=== PATIENT | male | born 1950 | race American Indian/Alaskan Native ===

== ENCOUNTER 2020-09-10 14:09 | Emergency (ER) | payer MEDICARE ==
[2020-09-10 16:30] LABS: Basophils % (Auto) 0.3 % (0.0-1.8); Eosinophils # (Auto) 0.1 K/mm3 (0.0-0.4); Eosinophils % (Auto) 1.3 % (0.0-4.3); Hematocrit 42.7 % (35.5-45.6); Hemoglobin 14.5 gm/dl (11.8-15.2); Lymphocytes # (Auto) 1.4 K/mm3 (1.2-5.4); Lymphocytes % (Auto) 18.4 % (13.4-35.0); Mean Corpuscular HGB Conc 34 % (32-34); Mean Corpuscular Volume 95 fl (84-94); Monocytes # (Auto) 0.5 K/mm3 (0.0-0.8); Monocytes % (Auto) 7.2 % (0.0-7.3); Platelet Count 227 K/mm3 (140-440); Red Cell Distribution Width 13.3 % (13.2-15.2)
[2020-09-10 16:54] LABS: Alanine Aminotransferase 17 units/L (7-56); Albumin 4.5 g/dL (3.9-5); BUN/Creatinine Ratio 20; Blood Urea Nitrogen 18 mg/dL (9-20); Calcium 9.4 mg/dL (8.4-10.2); Hemolysis Index 11
--- NOTE | 2020-09-10 17:26 | XRay Report ---
CHEST 1 VIEW INDICATION / CLINICAL INFORMATION: cough. FINDINGS: SUPPORT DEVICES: None. HEART / MEDIASTINUM: No significant abnormality. LUNGS / PLEURA: No significant pulmonary or pleural abnormality. No pneumothorax. ADDITIONAL FINDINGS: No significant additional findings. IMPRESSION: 1. No acute findings. Signer Name: Dangelo Green MD Signed: 09/10/2020 5:21 PM Workstation Name: [id number]
--- NOTE | 2020-09-10 18:09 | Emergency Department Report ---
ED Psych HPI - General Chief Complaint: Psych Stated Complaint: MENTAL HEALTH Time Seen by Provider: 09/10/20 16:52 Source: patient Mode of arrival: Ambulatory - History of Present Illness Initial Comments: 69-year-old male, history of bipolar disorder and schizophrenia, presents to ED for mental health evaluation. I spoke with the patient's sister, Geetha Del Toro, who has power of solution make up operator, and her daughter, patient's niece. Patient lives with his sister. Family states that patient has been having " episodes" for the last month. They states when he has these episodes, patient hallucinates, stating "My head is gone... My eyes are gone... Where's my head?" Family states patient had bilateral moving car on the way here because he did not want to be evaluated. Patient will say things such as he has gas all over him and he is burning. Patient often takes his pills but does not swallow them, and then they find the pills later, undigested. Family states patient has a psychiatrist and advised him to come to the ER to be placed on a 1013 for inpatient admission. MD Complaint: other -: month(s) (1) History of same: Yes Quality: getting worse Improves With: none Worsens With: none Context: not taking psychiatric Associated Symptoms: denies other symptoms Treatments Prior to Arrival: none - Related Data Home Medications Medication Instructions Recorded Confirmed Last Taken Cyanocobalamin (Vitamin B-12) 1,000 mcg PO DAILY 10/17/15 10/17/15 Unknown [B-12] Quetiapine Fumarate [SEROquel] 50 mg PO BID 10/17/15 10/17/15 Unknown diphenhydrAMINE [Benadryl CAP] 25 mg PO QHS PRN 10/17/15 10/17/15 Unknown Previous Rx's Medication Instructions Recorded Last Taken Type Benztropine [Cogentin] 0.5 mg PO BID #10 tab 09/11/20 Unknown Rx Mirtazapine [Remeron 15mg TAB] 15 mg PO QHS #30 tablet 09/11/20 Unknown Rx risperiDONE [Risperal] 1 mg PO BID #100 ml 09/11/20 Unknown Rx Allergies Allergy/AdvReac Type Severity Reaction Status Date / Time No Known Allergies Allergy Verified 09/11/20 08:30 ED Review of Systems ROS: Stated complaint: MENTAL HEALTH Other details as noted in HPI Comment: All other systems reviewed and negative Psychiatric: auditory hallucinations, visual hallucinations ED Past Medical Hx - Past Medical History Hx Psychiatric Treatment: Yes Additional medical history: Schizophrenia and bipolar - Surgical History Past Surgical History?: No - Social History Smoking Status: Never Smoker Substance Use Type: None - Medications Home Medications: Home Medications Medication Instructions Recorded Confirmed Last Taken Type Cyanocobalamin (Vitamin B-12) 1,000 mcg PO DAILY 10/17/15 10/17/15 Unknown History [B-12] Quetiapine Fumarate [SEROquel] 50 mg PO BID 10/17/15 10/17/15 Unknown History diphenhydrAMINE [Benadryl CAP] 25 mg PO QHS PRN 10/17/15 10/17/15 Unknown History Benztropine [Cogentin] 0.5 mg PO BID #10 tab 09/11/20 Unknown Rx Mirtazapine [Remeron 15mg TAB] 15 mg PO QHS #30 tablet 09/11/20 Unknown Rx risperiDONE [Risperal] 1 mg PO BID #100 ml 09/11/20 Unknown Rx ED Physical Exam - General Limitations: No Limitations General appearance: alert, in no apparent distress - Head Head exam: Present: atraumatic, normocephalic - Eye Eye exam: Present: normal appearance, EOMI - ENT ENT exam: Present: mucous membranes moist - Neck Neck exam: Present: normal inspection - Respiratory Respiratory exam: Present: normal lung sounds bilaterally. Absent: respiratory distress - Cardiovascular Cardiovascular Exam: Present: normal rhythm, tachycardia - GI/Abdominal GI/Abdominal exam: Absent: distended - Extremities Exam Extremities exam: Present: normal inspection - Neurological Exam Neurological exam: Present: alert - Psychiatric Psychiatric exam: Present: normal affect, normal mood - Skin Skin exam: Present: warm, dry, intact, normal color ED Course Vital Signs 09/10/20 09/10/20 09/11/20 15:14 20:05 05:30 Temperature 98.4 F 98.5 F 98.8 F Pulse Rate 107 H 73 77 Respiratory 20 18 18 Rate Blood Pressure 151/93 Blood Pressure 133/82 110/72 [Left] O2 Sat by Pulse 99 100 95 Oximetry 09/11/20 08:32 Temperature 96.9 F L Pulse Rate 76 Respiratory 18 Rate Blood Pressure Blood Pressure 139/90 [Left] O2 Sat by Pulse 100 Oximetry ED Medical Decision Making - Lab Data Result diagrams: 09/10/20 16:19 09/10/20 16:19 - Medical Decision Making 69-year-old old male presents to ED for mental health evaluation. Family reports that patient has been having bizarre behavior, hallucinations, not taking his medications. Patient has been placed on a 1013. We are Awaiting UA and urine drug screen, however, patient is medically clear for mental health evaluation. Critical care attestation.: If time is entered above; I have spent that time in minutes in the direct care of this critically ill patient, excluding procedure time. ED Disposition Clinical Impression: Schizophrenia Disposition: DC-01 TO HOME OR SELFCARE Is pt being admited?: No Condition: Stable Instructions: Schizophrenia, Supporting Someone With Schizophrenia, Managing Schizophrenia Prescriptions: Mirtazapine [Remeron 15mg TAB] 15 mg PO QHS #30 tablet Benztropine [Cogentin] 0.5 mg PO BID #10 tab risperiDONE [Risperal] 1 mg PO BID #100 ml Referrals: [facility] [Other] - 3-5 Days PRIMARY CARE, [Primary Care Provider] - 3-5 Days
[2020-09-10 19:32] LABS: Amphetamine Screen,Urine Negative; Benzodiazepines Screen,Urine Negative; Cannabinoid Screen,Urine Negative; Cocaine Screen,Urine Negative; Methadone Screen,Urine Negative; Opiate Screen,Urine Negative
--- NOTE | 2020-09-11 08:12 | Consultation ---
History of Present Illness - Reason for Consult Consult date: 09/11/20 Reason for consult: MHE Requesting physician: RAJ ARORA - History of Present Psychiatric Illness Per ED Provider:69-year-old male, history of bipolar disorder and schizophrenia, presents to ED for mental health evaluation. I spoke with the patient's sister, Geetha Del Toro, who has power of claims attorney, and her daughter, patient's niece. Patient lives with his sister. Family states that patient has been having " episodes" for the last month. They states when he has these episodes, patient hallucinates, stating "My head is gone... My eyes are gone... Where's my head?" Family states patient had bilateral moving car on the way here because he did not want to be evaluated. Patient will say things such as he has gas all over him and he is burning. Patient often takes his pills but does not swallow them, and then they find the pills later, undigested. Family states patient has a psychiatrist and advised him to come to the ER to be placed on a 1013 for inpatient admission. Per MHE: Per family pt carries a diagnosis of Schizophrenia; family reports pt has no hx of Dementia. Family reported to ED provider that the pt is not compliant with his meds and will cheek his meds then spit them out. Family reported to this criminal justice social worker that the pt is compliant with his medications. Family reports that the pt is followed by [facility] at [address] [place] [address] with next appointment in one week Sunday. Family reports that the pts outpatient psychiatrist advised pt come to the ED for a reaction to the increase in his Seroquel. Family reports that the pt has no hx of inpatient tx. From previous notes 2015, team attempted to find inpatient placement but denied by multiple facilities due to DD, unable to complete ADLs on his own or fully participate in groups. Pt resides with his sister Geetha Del Toro who can be reached at [phone]. Ms. Iniguez reports that she is the patients guardian and the pt has lived with her "his whole life... since he was born." Ms. Del Toro reports that the pt is usually, "regular... he eats three times a day and a snack, he colors and likes to spell." When criminal justice social worker asked pt sister Ms. Iniguez if the pt has an developmental delays, sister stated no. Asked to speak with pt's niece. Pt niece stated that the pt, "never went to school," and has lived with his sister (who also does not drive) their entire life. The niece transports the pt and his sister where they need to go and checks in on them. Comparator Operator looked back in the pts chart and pt has hx of developmental delays, needing assistance performing his ADLS. Asked the niece if the pt has any Developmental delays or intellectual disabilities the niece states that the pt does. Pt is on disability and does not work. Pt has no legal hx per the family.Family reports the pt has no substance use history. Pt has not reported any thoughts or plans to harm himself to his family or made any suicidal threats or statements. When I asked the pt this question, pt moves his mouth back and forth but only grunts.Family reports that the pt has not made any homicidal threats or gestures. Hx of agitation, aggression per 2016 records. Pt is not oriented. Pt unable to tell me his name or date of or where he is. Pt only grunts throughout the assessment. Family reports that the pt is usually able to communicate, "regular. He asks what's for dinner and can go with us to the grocery store." Unable to fully assess the pt's baseline. Family reports that the pt behaviors changed one week ago after an increase in his S eroquel. The "grunting and moaning noises," started at this time as well. Family also reports that one week ago the pt began having delusions; pt has been stating that he doesn't have a head, his ears have fallen off. Per previous records however, pt has had similar somatic delusions in the past (records from 2016 during a visit to this hospital reporting that his penis is gone and his rectum is missing). Pt has poor eye contact, poor attention, poor focus, poor judgement, poor insight. PSYCH HPI Patient is a 69-year-old unemployed disabled male who currently resides with family. Past psychiatric history of schizophrenia, dementia and underlying developmental delay and unspecified medical related issues who presented to the ED with family at patient psychiatrics advised for concern of medication reaction after recent increase in Seroquel with increase grunting and moaning noises. Patient seen in ED, having difficulty expressing words but understandable when he does speaks out lout. Patient adriana to say the name of president of [facility], thinks he is at [facility] (note shows he gets care from [facility]) which is understandable but does not know the year or month. Patient denies hearing voices, reports sleeping and says he just want to rest. He also does not know why he is here. PAST PSYCHIATRIC HISTORY Diagnoses:schizophrenia Suicide attempts or Self-harm behavior: Prior psychiatric hospitalizations: Substance Abuse history: Previous psychiatric medications tried: Outpatient treatment: PAST MEDICAL HISTORY: Family Psychiatric History: None reported or documented SOCIAL HISTORY Marital Status: single Living Arrangements: with family Employment Status:dsiabled Access to guns/weapons: none Education: 11th grade History of Abuse: none Legal History: none reproted REVIEW OF SYSTEMS ROS cannot be reliably obtained from the patient due to his current mental status MENTAL STATUS EXAMINATION General Appearance and Behavior: Age appropriate, good hygiene, wearing appropriate clothes, cooperative polite with questioning. Cooperation: engaged Psychomotor Behavior: Psychomotor normal Mood: good Affect and affective range: congruent with mood Thought Process: confused Thought Content: confused Speech: mumbled voices, normal volume Intellectual Functioning: Poor Suicidal Ideation: N/A Homicidal Ideation: N/A Impulse Control: Unimpaired Insight and Judgment: Impaired Memory: memory impaired Attention:Distractible, Orientation: Alert, but disoriented and confused MENTAL STATUS EXAMINATION General Appearance and Behavior: Age appropriate, good hygiene, wearing appropriate clothes, uncooperative irritable with questioning. Cooperation: Withdrawn Psychomotor Behavior: Psychomotor agitation Mood: "mumbling" Affect and affective range: Euthymic Thought Process: Tangential, loose associattion Thought Content: Paranoid and confused Speech: low volumbe, mumbling voice, Intellectual Functioning: Poor Suicidal Ideation: N/A Homicidal Ideation: N/A Impulse Control: Unimpaired Insight and Judgment: Impaired Memory: memory impaired Attention:Distractible, Orientation: Alert, but disoriented and confused Diagnoses: Assessment and Plan - Psychiatric problem (1) Concern about drug reaction without diagnosis Current Visit: Yes Status: Acute Treatment Plan Patient with hx of dementia, not displaying endangering behaviors, per my review of MHE asessors note, pt has always required assistance and with some underlying cognitive impairement. His confusion or hallucination are not primary concerns given combined history of Dementia and suggested developmental delay, no acute treatment for that. No major threatening or endangering behavior rpeorted. Family reports that the pt behaviors changed one week ago after an increase in his Seroquel. The "grunting and moaning noises," This may be due to dystonia. Will treat with IM cogentin in ED. Hold Seroquel and discharge pt on Risperdione, oral cogentine and remeron for sleep QHS. To follow up outpt with family psychiatrist. MEDICATIONS: Risks, benefits and alternatives of medications discussed with the patient, questions answered and consent obtained from patient. PSYCHOTHERAPY: Supportive psychotherapy provided MEDICAL: Per primary team DELIRIUM PRECAUTIONS: Please re-orient patient frequently, keep lights on during the day, and minimize benzodiazepines and opiates as these medications could worsen patient's confusion. AUTOMATIC SPINNING LATHE SETTER: DISPOSITION: Do Not Recommend acute inpatient psychiatric hospitalization at this time. Case discussed with Dr. Allison who agrees with current disposition LEGAL STATUS: 1013 rescinded FOLLOW-UP: Will sign off Thank you for the consult. Please contact with any questions and/or concerns. Medications and Allergies Allergies Allergy/AdvReac Type Severity Reaction Status Date / Time No Known Allergies Allergy Verified 09/11/20 08:30 Home Medications Medication Instructions Recorded Confirmed Last Taken Type Cyanocobalamin (Vitamin B-12) 1,000 mcg PO DAILY 10/17/15 10/17/15 Unknown History [B-12] Quetiapine Fumarate [SEROquel] 50 mg PO BID 10/17/15 10/17/15 Unknown History diphenhydrAMINE [Benadryl CAP] 25 mg PO QHS PRN 10/17/15 10/17/15 Unknown History Benztropine [Cogentin] 0.5 mg PO BID #10 tab 09/11/20 Unknown Rx risperiDONE [Risperal] 1 mg PO BID #100 ml 09/11/20 Unknown Rx Mental Status Exam - Vital signs Last Vital Signs Temp 98.8 F 09/11/20 05:30 Pulse 77 09/11/20 05:30 Resp 18 09/11/20 05:30 BP 110/72 09/11/20 05:30 Pulse Ox 95 09/11/20 05:30 Results Result Diagrams: 09/10/20 16:19 09/10/20 16:19 Abnormal lab results 09/10/20 09/10/20 09/10/20 Range/Units 16:19 16:19 16:19 MCV 95 H (84-94) fl Seg Neutrophils % 72.8 H (40.0-70.0) % Glucose 117 H (75-100) mg/dL Salicylates < 0.3 L (2.8-20.0) mg/dL Acetaminophen (10.0-30.0) ug/mL 09/10/20 Range/Units 16:19 MCV (84-94) fl Seg Neutrophils % (40.0-70.0) % Glucose (75-100) mg/dL Salicylates (2.8-20.0) mg/dL Acetaminophen 5.0 L (10.0-30.0) ug/mL All other labs normal. Assessment and Plan - Psychiatric problem (1) Concern about drug reaction without diagnosis Current Visit: Yes Status: Acute
[2020-09-11 08:32] VITALS: BP 139/90
[2020-09-11] MEDS ORDERED: BENZTROPINE 2 MG/2 ML INJ IM NR (09:35)
--- NOTE | 2020-09-11 10:41 | Event Note ---
Date: 09/11/20 69-year-old male with history of dementia who presented due to behavioral change. Seen by psychiatry and 1013 rescinded. Psych recommends holding Seroquel and discharging the patient on risperidone, Cogentin, and Remeron for sleep. Vitals were reviewed and are stable. Patient will follow up with outpatient psychiatrist.
[2020-09-11] MEDS ORDERED: BENZTROPINE 2 MG/2 ML INJ IM ONE (10:52)
== END 2020-09-11 18:28 | disposition home or self-care (01) ==
LOC: ED 14:09
DX: F20.9 Schizophrenia, unspecified (principal); Z79.899 Other long term (current) drug therapy
CPT/HCPCS: 36415; 71045; 80053; 80307; 85025; 96372; 99285; J0515; 80320; G0480

== ENCOUNTER 2020-10-19 17:40 | Emergency (ER) | payer MEDICARE ==
[2020-10-19 18:16] LABS: Bilirubin,Urine NEG (Negative); Blood,Urine NEG (Negative); Color,Urine Straw (Yellow); Protein,Urine <15 mg/dL mg/dL (Negative); Urobilinogen,Urine < 2.0 mg/dL (<2.0)
[2020-10-19 18:20] LABS: WBC,Urine < 1.0 /HPF (0.0-6.0)
[2020-10-19 18:28] VITALS: BP 142/80
[2020-10-19 18:29] LABS: Amphetamine Screen,Urine Negative; Benzodiazepines Screen,Urine Negative; Cannabinoid Screen,Urine Negative; Cocaine Screen,Urine Negative; Methadone Screen,Urine Negative; Opiate Screen,Urine Negative
--- NOTE | 2020-10-19 18:45 | Emergency Department Report ---
ED General Adult HPI - General Chief complaint: Psych Stated complaint: patient articulates no complaints PUI?: No Time Seen by Provider: 10/19/20 18:31 Source: patient, RN notes reviewed, old records reviewed Mode of arrival: Ambulatory Limitations: Other (Patient not communicative.) - History of Present Illness Initial comments: The patient is a 69-year-old gentleman. He has a history of bipolar disorder and schizophrenia. He presented to the ER for a mental health evaluation. As per nursing documentation, and collateral history obtained from nurse who triaged this patient, the patient was reportedly trying to get out of a car. As per prior documentation, the patient resides with his sister, Ms. Geetha Del Toro; [phone]. Called this number, to obtain collateral history and information. Nobody answer the phone. Left voicemail for call back. It appears that this patient has a history of noncompliance with his m edications, and that has not been able to complete activities of daily living on his own, or fully participating groups. His past history also includes schizophrenia, dementia, and underlying develop mental delay The patient himself is awake. He indicates that he is not having physical pain. He states that he is hungry. He states he does not want to harm himself or harm other people. He denies additional complaints, however, he is minimally verbal and a poor historian. No additional history is available at this time. -: unknown Severity scale (0 -10): 0 - Related Data Home Medications Medication Instructions Recorded Confirmed Last Taken Cyanocobalamin (Vitamin B-12) 1,000 mcg PO DAILY 10/17/15 10/17/15 Unknown [B-12] Quetiapine Fumarate [SEROquel] 50 mg PO BID 10/17/15 10/17/15 Unknown diphenhydrAMINE [Benadryl CAP] 25 mg PO QHS PRN 10/17/15 10/17/15 Unknown Previous Rx's Medication Instructions Recorded Last Taken Type Benztropine [Cogentin] 0.5 mg PO BID #10 tab 10/19/20 Unknown Rx Mirtazapine [Remeron 15mg TAB] 15 mg PO QHS #30 tablet 10/19/20 Unknown Rx risperiDONE [RisperDAL ORAL LIQD] 1 mg PO BID #100 ml 10/19/20 Unknown Rx Allergies Allergy/AdvReac Type Severity Reaction Status Date / Time No Known Allergies Allergy Verified 09/11/20 08:30 ED Review of Systems ROS: Stated complaint: SCHIZOPHENIA Other details as noted in HPI Comment: Unobtainable due to pts medical conditions ED Past Medical Hx - Past Medical History Previous Medical History?: Yes Hx Psychiatric Treatment: Yes Additional medical history: Schizophrenia and bipolar. hyperkalemia - Social History Smoking Status: Never Smoker Substance Use Type: None - Medications Home Medications: Home Medications Medication Instructions Recorded Confirmed Last Taken Type Cyanocobalamin (Vitamin B-12) 1,000 mcg PO DAILY 10/17/15 10/17/15 Unknown History [B-12] Quetiapine Fumarate [SEROquel] 50 mg PO BID 10/17/15 10/17/15 Unknown History diphenhydrAMINE [Benadryl CAP] 25 mg PO QHS PRN 10/17/15 10/17/15 Unknown History Benztropine [Cogentin] 0.5 mg PO BID #10 tab 10/19/20 Unknown Rx Mirtazapine [Remeron 15mg TAB] 15 mg PO QHS #30 tablet 10/19/20 Unknown Rx risperiDONE [RisperDAL ORAL LIQD] 1 mg PO BID #100 ml 10/19/20 Unknown Rx ED Physical Exam - General Limitations: Other (Developmental delay, poor historian, lack of family available for collateral information) General appearance: alert, in no apparent distress - Head Head exam: Present: atraumatic, normocephalic - Eye Eye exam: Present: normal appearance, EOMI. Absent: nystagmus - ENT ENT exam: Present: normal exam, mucous membranes moist, normal external ear exam, other (The patient is edentulous) - Neck Neck exam: Present: normal inspection, full ROM. Absent: tenderness, meningismus - Respiratory Respiratory exam: Present: normal lung sounds bilaterally. Absent: respiratory distress, wheezes, rales, rhonchi, stridor, decreased breath sounds - Cardiovascular Cardiovascular Exam: Present: regular rate, normal rhythm, normal heart sounds. Absent: bradycardia, tachycardia, irregular rhythm, systolic murmur, diastolic murmur, rubs, gallop - GI/Abdominal GI/Abdominal exam: Present: soft, normal bowel sounds. Absent: distended, tenderness, guarding, rebound, rigid, pulsatile mass - Rectal Rectal exam: Present: deferred - Extremities Exam Extremities exam: Present: normal inspection, full ROM, other (2+ pulses noted in the bilateral upper and lower extremities. There is no palpable cord. negative Homans sign. Muscular compartments are soft. The pelvis is stable.). Absent: pedal edema, calf tenderness - Back Exam Back exam: Present: normal inspection, full ROM. Absent: tenderness, CVA tenderness (R), CVA tenderness (L), paraspinal tenderness, vertebral tenderness - Neurological Exam Neurological exam: Present: alert, other (No facial droop. Tongue midline. Extraocular movements intact bilaterally. Facial sensation intact to light touch in V1, V2, V3 distribution bilaterally. 5 and a 5 strength in 4 extremities. Sensation intact to light touch in 4 extremities.) - Psychiatric Psychiatric exam: Absent: homicidal ideation, suicidal ideation - Skin Skin exam: Present: warm, dry, intact, normal color. Absent: rash ED Course Vital Signs 10/19/20 10/19/20 18:28 19:00 Temperature 97.9 F Pulse Rate 89 Respiratory 18 18 Rate Blood Pressure 142/80 [Right] O2 Sat by Pulse 100 99 Oximetry - Reevaluation(s) Reevaluation #1: 10/19/20 19:48 Differential diagnosis, including but not limited to: Dementia, developmental delay, encounter for behavioral health screening examination, urinary tract infection, electrolyte derangement, thyroid derangement Assessment and plan: 69-year-old gentleman, with a previously documented history of schizophrenia, dementia, and underlying developmental delay, who was brought to the hospital by family because he may have been trying to get out of a car. Called up family, nobody answered phone call, left voicemail for call back. Patient's physical examination benign and unremarkable. He presents as pleasant, calm and cooperative. No obvious cutaneous skin lesions noted. Patient placed on hold status, psychiatric consultation requested, appropriate laboratory studies ordered, urinalysis not consistent with urinary tract infection. Reassess after data points have resulted. 10/19/20 20:42 Patient evaluated by our mental health professional, Ms. Eden. We are both in agreement that this is likely the patient's underlying schizophrenia, dementia, and developmental delay. Given his chronic issues, pleasant demeanor, cooperation at this time, not being in any acute distress, it is our opinion that this patient would not benefit from 1013 hold or involuntary hold. Furthermore, his underlying dementia and developmental delay are unlikely to be improved with involuntary hold, or inpatient psychiatric hospitalization. His sister, Ms. Del Toro has presented herself to the emergency room. She denies all medical complaints. She specifically denies fever, fall, nausea, vomiting, diarrhea, or change in medications. She states the patient was in the back of the car, sitting down, and was trying to get up. Family cannot control his behavior, and thus they presented this patient to the emergency room. She is asking for refill on Risperdal, 1 mg/mL, 1 mg, p.o. twice daily. Laboratory studies unremarkable. Physical exam unremarkable. Patient suitable for discharge with outpatient follow-up. ED Medical Decision Making - Lab Data Result diagrams: 10/19/20 18:51 10/19/20 18:51 Vital Signs 10/19/20 18:28 Temperature 97.9 F Pulse Rate 89 Respiratory 18 Rate Blood Pressure 142/80 [Right] O2 Sat by Pulse 100 Oximetry Lab Results 10/19/20 10/19/20 10/19/20 Range/Units 18:51 18:51 18:51 WBC 5.6 (4.5-11.0) K/mm3 RBC 4.11 (3.65-5.03) M/mm3 Hgb 13.1 (11.8-15.2) gm/dl Hct 39.0 (35.5-45.6) % MCV 95 H (84-94) fl MCH 32 (28-32) pg MCHC 34 (32-34) % RDW 13.6 (13.2-15.2) % Plt Count 190 (140-440) K/mm3 Lymph % (Auto) 25.7 (13.4-35.0) % [place] % (Auto) 9.1 H (0.0-7.3) % Eos % (Auto) 2.6 (0.0-4.3) % Baso % (Auto) 0.2 (0.0-1.8) % Lymph # (Auto) 1.4 (1.2-5.4) K/mm3 [place] # (Auto) 0.5 (0.0-0.8) K/mm3 Eos # (Auto) 0.1 (0.0-0.4) K/mm3 Baso # (Auto) 0.0 (0.0-0.1) K/mm3 Seg Neutrophils % 62.4 (40.0-70.0) % Seg Neutrophils # 3.5 (1.8-7.7) K/mm3 Estimated GFR > 60 ml/min BUN/Creatinine Ratio 18 % Urine Color (Yellow) Urine Turbidity (Clear) Urine pH (5.0-7.0) Ur Specific [place] (1.003-1.030) Urine Protein (Negative) mg/dL Urine Glucose (UA) (Negative) mg/dL Urine Ketones (Negative) mg/dL Urine Blood (Negative) Urine Nitrite (Negative) Urine Bilirubin (Negative) Urine Urobilinogen (<2.0) mg/dL Ur Leukocyte Esterase (Negative) Urine WBC (Auto) (0.0-6.0) /HPF Urine RBC (Auto) (0.0-6.0) /HPF Urine Opiates Screen Urine Methadone Screen Ur Barbiturates Screen Ur Phencyclidine Scrn Ur Amphetamines Screen U Benzodiazepines Scrn [place] 0.1 (0.0-1.2) mmol/L Urine Cocaine Screen U Marijuana (THC) Screen Drugs of Abuse Note 10/19/20 10/19/20 Range/Units Unknown Unknown WBC (4.5-11.0) K/mm3 RBC (3.65-5.03) M/mm3 Hgb (11.8-15.2) gm/dl Hct (35.5-45.6) % MCV (84-94) fl MCH (28-32) pg MCHC (32-34) % RDW (13.2-15.2) % Plt Count (140-440) K/mm3 Lymph % (Auto) (13.4-35.0) % [place] % (Auto) (0.0-7.3) % Eos % (Auto) (0.0-4.3) % Baso % (Auto) (0.0-1.8) % Lymph # (Auto) (1.2-5.4) K/mm3 [place] # (Auto) (0.0-0.8) K/mm3 Eos # (Auto) (0.0-0.4) K/mm3 Baso # (Auto) (0.0-0.1) K/mm3 Seg Neutrophils % (40.0-70.0) % Seg Neutrophils # (1.8-7.7) K/mm3 Estimated GFR ml/min BUN/Creatinine Ratio % Urine Color Straw (Yellow) Urine Turbidity Clear (Clear) Urine pH 6.0 (5.0-7.0) Ur Specific [place] 1.009 (1.003-1.030) Urine Protein <15 mg/dl (Negative) mg/dL Urine Glucose (UA) Neg (Negative) mg/dL Urine Ketones Neg (Negative) mg/dL Urine Blood Neg (Negative) Urine Nitrite Neg (Negative) Urine Bilirubin Neg (Negative) Urine Urobilinogen < 2.0 (<2.0) mg/dL Ur Leukocyte Esterase Neg (Negative) Urine WBC (Auto) < 1.0 (0.0-6.0) /HPF Urine RBC (Auto) 1.0 (0.0-6.0) /HPF Urine Opiates Screen Negative Urine Methadone Screen Negative Ur Barbiturates Screen Negative Ur Phencyclidine Scrn Negative Ur Amphetamines Screen Negative U Benzodiazepines Scrn Negative [place] (0.0-1.2) mmol/L Urine Cocaine Screen Negative U Marijuana (THC) Screen Negative Drugs of Abuse Note Disclamer Critical care attestation.: If time is entered above; I have spent that time in minutes in the direct care of this critically ill patient, excluding procedure time. ED Disposition Clinical Impression: Encounter for screening examination for mental health and behavioral disorders, History of developmental delay, Medication refill Disposition: DC-01 TO HOME OR SELFCARE Is pt being admited?: No Does the pt Need Aspirin: No Condition: Good Instructions: Dementia Caregiver Guide, Dementia, [id number] Additional Instructions: Please continue current outpatient medications. Please follow-up with your outpatient primary care doctor, psychologist, psychiatrist, and/or neurologist, within the next 3 to 5 days. Please return to the emergency room right away with new pain, worsened pain, m igration of pain, homicidality, suicidality, change in mental status, or any new, worsened or different symptoms not present on the initial emergency room evaluation. Prescriptions: Mirtazapine [Remeron 15mg TAB] 15 mg PO QHS #30 tablet Benztropine [Cogentin] 0.5 mg PO BID #10 tab risperiDONE [RisperDAL ORAL LIQD] 1 mg PO BID #100 ml Referrals: [facility] [Provider Group] - 3-5 Days [facility] [Outside] - 3-5 Days [facility] [Outside] - 3-5 Days Time of Disposition: 20:44 (Patient discharged in custody of sister)
[2020-10-19 19:14] LABS: Basophils % (Auto) 0.2 % (0.0-1.8); Eosinophils # (Auto) 0.1 K/mm3 (0.0-0.4); Eosinophils % (Auto) 2.6 % (0.0-4.3); Hemoglobin 13.1 gm/dl (11.8-15.2); Lymphocytes # (Auto) 1.4 K/mm3 (1.2-5.4); Lymphocytes % (Auto) 25.7 % (13.4-35.0); Mean Corpuscular HGB Conc 34 % (32-34); Mean Corpuscular Volume 95 fl (84-94); Monocytes # (Auto) 0.5 K/mm3 (0.0-0.8); Monocytes % (Auto) 9.1 % (0.0-7.3); Platelet Count 190 K/mm3 (140-440); Red Blood Count 4.11 M/mm3 (3.65-5.03); Red Cell Distribution Width 13.6 % (13.2-15.2)
[2020-10-19 19:37] LABS: BUN/Creatinine Ratio 18; Blood Urea Nitrogen 16 mg/dL (9-20); Calcium 9.1 mg/dL (8.4-10.2); Hemolysis Index 9
== END 2020-10-19 21:25 | disposition home or self-care (01) ==
LOC: ED 17:40
DX: F03.91 Unspecified dementia, unspecified severity, with behavioral disturbance (principal); Z76.0 Encounter for issue of repeat prescription; Z86.59 Personal history of other mental and behavioral disorders; F20.9 Schizophrenia, unspecified; F31.9 Bipolar disorder, unspecified; Z79.899 Other long term (current) drug therapy
CPT/HCPCS: 36415; 80048; 80178; 80307; 80320; 81001; 82550; 83735; 84439; 84443; 85025; G0480